=== PATIENT | male | born 1985 | race Caucasian/White ===

== ENCOUNTER 2017-06-29 07:06 | Day surgery (SDC) | payer BC ==
[2017-06-26 10:06] VITALS: BMI 28.3
[2017-06-29 12:32] VITALS: TEMP 98.3
[2017-06-29 14:14] VITALS: BP 129/73; PULSE 81
== END 2017-06-29 14:15 | disposition home or self-care (01) ==
LOC: FASU 07:06
PROVIDERS: ATTEND Surgery
PROC: 0YUA4JZ Supplement Bilateral Inguinal Region with Synthetic Substitute, Percutaneous Endoscopic Approach (ICD-10-PCS; principal; 2017-06-29)
DX: K40.20 Bilateral inguinal hernia, without obstruction or gangrene, not specified as recurrent (principal)
CPT/HCPCS: 94010; 94760